=== PATIENT | female | born 1995 | race Caucasian/White ===

== ENCOUNTER 2020-11-16 11:36 | Inpatient (IN) | payer MEDICAID, OTHER ==
--- NOTE | 2020-11-16 11:59 | PCM.LDHP ---
L&D History of Present Illness - General Date of Service: 11/16/20 Admit Problem/Dx: Admission Diagnosis/Problem Admission Diagnosis/Problem Source of Information: Patient History Limitations: Reports: No Limitations - History of Present Illness Introduction:: Leona Moran (Lusy) is a GBS - AB- with RhoGAM at 28 weeks 25 year old female at 37-6 weeks gestation with an ELMER of 12/01/20 by early US and LMP with a history of marijuana use during who was evaluated in clinic for a routine visit and was found to have elevated blood pressure. She denies any contractions, vaginal bleeding, change in discharge or leaking of fluid. She reports good movement. Present Illness Comments:: Leona Moran (Lusy) is a GBS - AB- with RhoGAM at 28 weeks 25 year old female at 37-6 weeks gestation with an ELMER of 12/01/20 by early US and LMP with a history of marijuana use during who was evaluated in clinic for a routine visit and was found to have elevated blood pressure. Patient has received [facility] care with Dr. Murry; has known medicinal marijuana use, approximately 3 times per week during . She received the Tdap vaccine on 09/10/20; flu vaccine 06/25/20 OBGYN History G1: current labs: Blood type: AB- Antibody screen: Negative Rubella status: immune Hepatitis B surface antigen: negative Hepatitis C: unknown RPR: negative HIV: negative Gonorrhea: Negative Chlamydia: negative Anatomy US: 07/30/20 Normal growth, BERHANE, placental position, anatomy. Repeat for more visualization done 09/10/20. One hour glucose tolerance test: 122 on 06/25/21, 116 on 09/10/20 Second trimester hematocrit/hemoglobin: 12.6 Platelets: 259,000 GBS status: negative - Related Data Allergies/Adverse Reactions: Allergies Allergy/AdvReac Type Severity Reaction Status Date / Time No Known Allergies Allergy Verified 11/16/20 12:35 H&P Review of Systems - Review of Systems: Review Of Systems: See Below General: Reports: No Symptoms HEENT: Reports: No Symptoms Pulmonary: Reports: No Symptoms Cardiovascular: Reports: No Symptoms Gastrointestinal: Reports: No Symptoms Genitourinary: Reports: No Symptoms Musculoskeletal: Reports: No Symptoms Skin: Reports: No Symptoms Psychiatric: Reports: No Symptoms Neurological: Reports: No Symptoms L&D Exam - Exam Exam: See Below - OB Specific Movement: Active Heart Tones: Present - Pastor Score Pastor Score Cervix Position: Posterior Pastor Score Effacement: >80% Pastor Score Dilation: 3-4 cm - Exam General: Alert, Oriented Lungs: Clear to Auscultation, Normal Respiratory Effort Cardiovascular: Regular Rate, Regular Rhythm GI/Abdominal Exam: Normal Bowel Sounds, Soft Extremities: Normal Inspection, No Pedal Edema, Normal Capillary Refill Skin: Warm, Dry, Intact Psychiatric: Alert, Normal Affect, Normal Mood - Problem List (1) 37 weeks gestation of SNOMED Code(s): 70312773 ICD Code: Z3A.37 - 37 WEEKS GESTATION OF Status: Acute Current Visit: Yes (2) Marijuana use SNOMED Code(s): 022734863 ICD Code: F12.90 - CANNABIS USE, UNSPECIFIED, UNCOMPLICATED Status: Acute Current Visit: Yes (3) Elevated blood pressure affecting in third trimester, antepartum SNOMED Code(s): 86378620, 21759498, 863755415 ICD Code: O16.3 - UNSPECIFIED MATERNAL HYPERTENSION, THIRD TRIMESTER Status: Acute Current Visit: Yes Problem List Initiated/Reviewed/Updated: Yes Assessment/Plan Comment:: Leona Moran (Lusy) is a GBS - AB- with RhoGAM at 28 weeks 25 year old female at 37-6 weeks gestation with an ELMER of 12/01/20 by early US and LMP with a history of marijuana use during who was evaluated in clinic for a routine visit and was found to have repeated elevated blood pressure. Sent to L&D for induction of labor. 1. Induction of labor for elevated blood pressure with pitocin - Augmentation of labor with AROM as indicated 2. GBS - 3. AB- with negative antibody screen: RhoGAM indicated after delivery 4. Rubella immune 5. Continuous monitoring 6. Activity as tolerated 7. Small amounts of regular diet 8. Pain management as patient desires 9. Plans to breastfeed 10. Anticipate vaginal delivery unless otherwise indicated 11. Elevated blood pressure: CMP and protein/creatinine ratio ordered, continual blood pressure monitoring
[2020-11-16] MEDS ORDERED: Nalbuphine 10 MG/1 ML Vial IVPUSH PRN (12:35)
[2020-11-16] MEDS ORDERED: Sodium Chloride 0.9% 10 ML Syringe FLUSH PRN (12:35)
[2020-11-16] MEDS ORDERED: Oxytocin/Lactated Ringers 10 UNIT/1,000 ML BAG IV SCH ×2 (12:45)
[2020-11-16] MEDS ORDERED: ePHEDrine 50 MG/ML SDV IVPUSH PRN (12:47)
[2020-11-16] MEDS ORDERED: fentaNYL 100 MCG/2 ML SDV EPIDUR PRN (12:47)
[2020-11-16] MEDS ORDERED: Ondansetron 4 MG/2 ML SDV IVPUSH PRN (12:47)
--- NOTE | 2020-11-16 12:50 | PCM.PREANE ---
Preanesthetic Assessment - Procedure Proposed Procedure: Epidural - Anesthesia/Transfusion/Family Hx Anesthesia History: No Prior Anesthesia Family History of Anesthesia Reaction: No Transfusion History: No Prior Transfusion(s) Intubation History: Unknown - Review of Systems General: No Symptoms Pulmonary: No Symptoms Cardiovascular: No Symptoms (PIH), Edema Gastrointestinal: No Symptoms (GERD) Neurological: Headache (migraines) Other: Reports: None, Anxiety - Physical Assessment NPO Status Date: 11/16/20 NPO Status Time: 15:00 Vital Signs: HR:81 Sat:99% Temp:99.6 Resp:20 B/P:156/79 Height: 1.63 m Weight: 128.367 kg ASA Class: 3 Mental Status: Alert & Oriented x3 Airway Class: Mallampati = 3 Dentition: Reports: Normal Dentition, Caries Thyro-Mental Finger Breadths: 3 Mouth Opening Finger Breadths: 3 ROM/Head Extension: Full Lungs: Clear to Auscultation, Normal Respiratory Effort Cardiovascular: Regular Rate, Regular Rhythm, No Murmurs - Lab Values: All labs reviewed and noted and within acceptable ranges to proceed with epidural. - Allergies Allergies/Adverse Reactions: Allergies Allergy/AdvReac Type Severity Reaction Status Date / Time No Known Allergies Allergy Verified 11/16/20 12:35 - Anesthesia Plan Pre-Op Medication Ordered: None - Acknowledgements Anesthesia Type Planned: Epidural Pt an Appropriate Candidate for the Planned Anesthesia: Yes Alternatives and Risks of Anesthesia Discussed w Pt/Guardian: Yes Pt/Guardian Understands and Agrees with Anesthesia Plan: Yes PreAnesthesia Questionnaire - CURRENT (IN HOUSE) MEDS Current Meds: Current Medications Oxytocin/Lactated Ringer's (Pitocin In Lr 10 Units/1,000 Ml) 10 unit in 1,000 mls @ 12 mls/hr IV TITRATE BELLE; Protocol Oxytocin/Lactated Ringer's (Pitocin In Lr 10 Units/1,000 Ml) 10 unit in 1,000 mls @ 500 mls/hr IV .CONTINUOUS BELLE Lactated Ringer's (Ringers, Lactated) 1,000 mls @ 100 mls/hr IV ASDIRECTED BELLE Nalbuphine HCl (Nalbuphine 10 Mg/1 Ml Vial) 10 mg IVPUSH Q2H PRN PRN Reason: Pain Sodium Chloride (Sodium Chloride 0.9% 10 Ml Syringe) 10 ml FLUSH ASDIRECTED PRN PRN Reason: Keep Vein Open
[2020-11-16] MEDS ORDERED: Bupivacaine/fentaNYL/NS 100 ML Bag EPIDUR SCH (13:00)
[2020-11-16] MEDS: Lactated Ringers 1,000 ML IV SCH ×2 (13:07→16:32)
[2020-11-16] MEDS ORDERED: Labetalol 100 MG/20 ML MDV ONE (15:58)
--- NOTE | 2020-11-16 17:18 | PCM.PNLD ---
Labor Progress Note - VS & Meds Vital Signs: Last Vital Signs Temp 36.8 C 11/16/20 12:00 Pulse 87 11/16/20 16:30 Resp 17 11/16/20 12:00 BP 156/89 H 11/16/20 15:31 Pulse Ox 97 11/16/20 16:30 Active Medications: Current Medications Ephedrine Sulfate (Ephedrine 50 Mg/Ml Sdv) 5 mg IVPUSH ASDIRECTED PRN PRN Reason: Hypotension Fentanyl (Fentanyl 100 Mcg/2 Ml Sdv) 100 mcg EPIDUR Q3H PRN PRN Reason: Pain Last Admin: 11/16/20 15:53 Dose: 100 mcg Documented by: Fentanyl/Bupivacaine HCl (Bupivacaine/Fentanyl/Ns 100 Ml Bag) 100 ml EPIDUR ASDIRECTED BELLE Last Admin: 11/16/20 15:53 Dose: 100 ml Documented by: Oxytocin/Lactated Ringer's (Pitocin In Lr 10 Units/1,000 Ml) 10 unit in 1,000 mls @ 12 mls/hr IV TITRATE BELLE; Protocol Last Titration: 11/16/20 16:30 Dose: 8 munits/min, 48 mls/hr Documented by: Oxytocin/Lactated Ringer's (Pitocin In Lr 10 Units/1,000 Ml) 10 unit in 1,000 mls @ 500 mls/hr IV .CONTINUOUS BELLE Lactated Ringer's (Ringers, Lactated) 1,000 mls @ 100 mls/hr IV ASDIRECTED BELLE Last Admin: 11/16/20 16:32 Dose: 100 mls/hr Documented by: Miscellaneous Medication (Phenylephrine Hcl In 0.9% Nacl 1 Mg/10 Ml Syringe) 0.1 mg IVPUSH Q10M PRN PRN Reason: Hypotension Nalbuphine HCl (Nalbuphine 10 Mg/1 Ml Vial) 10 mg IVPUSH Q2H PRN PRN Reason: Pain Ondansetron HCl (Ondansetron 4 Mg/2 Ml Sdv) 4 mg IVPUSH ONETIME PRN PRN Reason: Nausea/Vomiting Sodium Chloride (Sodium Chloride 0.9% 10 Ml Syringe) 10 ml FLUSH ASDIRECTED PRN PRN Reason: Keep Vein Open Discontinued Medications Labetalol HCl (Labetalol 100 Mg/20 Ml Mdv) Confirm Administered Dose 100 mg .ROUTE .STK-MED ONE Stop: 11/16/20 15:59 - Uterine Contractions Contraction Intensity: Moderate - Monitoring Heart Rate (FHR) Variability: Moderate (6-25 bmp) Accelerations: Present, 15x15 Decelerations: None Strip Review: Category I - Vaginal Exam Dilation (cm): 5 Effacement (Percent): 80 Station: -2 Cervical Position: Midposition - Labor Progress (Free Text) Labor Progress: Epidural in place. Progressing well. One severe range blood pressure while sitting for epidural. Improved immediately with epidural.
[2020-11-16] MEDS ORDERED: Bupivacaine 0.25% 10 ML SDV ONE (20:00)
[2020-11-16] MEDS ORDERED: Labetalol 100 MG/20 ML MDV IVPUSH ONE (23:41)
--- NOTE | 2020-11-17 01:07 | PCM.SN.2 ---
- Free Text/Narrative Note: Stage I - Patient presented to clinic with elevated blood pressures. 37 weeks. Sent to labor and delivery for induction of labor. Pitocin initiated. AROM clear fluid. Epidural anesthesia. Progressed to complete with overall reassuring heart tones. Severe range blood pressure x1 at complete. Treated with iv labe tolol x1.. Otherwise mild. Stage II - of viable male, weight 3030g, 8/9 apgars at 0046. Head delivered in controlled manner over intact perineum. Body and shoulders followed atraumatically. To maternal abdomen. Positive cry. Cord clamped and cut at 5 minutes of life after laceration repair. 2nd degree midline laceration repaired with 3-0 vicryl in usual fashion without difficulty. Cord blood collected. Stage III - of intact placenta. 3vc. EBL 200
[2020-11-17] MEDS ORDERED: Benzocaine/Menthol 20%-0.5% Spray 56 GM Canister TOP PRN (01:34)
[2020-11-17] MEDS ORDERED: Witch Hazel Medicated Pads 40/Jar TOP PRN (01:34)
[2020-11-17] MEDS: Ibuprofen 600 MG Tab PO PRN ×2 (03:18→10:38)
--- NOTE | 2020-11-17 07:53 | PCM48HPAN ---
Post Anesthesia Note - EVALUATION WITHIN 48HRS OF ANESTHETIC Vital Signs in Normal Range: Yes Patient Participated in Evaluation: Yes Respiratory Function Stable: Yes Airway Patent: Yes Cardiovascular Function Stable: Yes Hydration Status Stable: Yes Pain Control Satisfactory: Yes Nausea and Vomiting Control Satisfactory: Yes Mental Status Recovered: Yes Vital Signs: Last Vital Signs Temp 36.8 C 11/17/20 06:05 Pulse 85 11/17/20 06:05 Resp 14 11/17/20 06:05 BP 144/90 H 11/17/20 06:05 Pulse Ox 96 11/17/20 06:05
[2020-11-17] MEDS: Acetaminophen 325 MG Tab PO PRN ×2 (15:13→21:28)
[2020-11-18] MEDS: Acetaminophen 325 MG Tab PO PRN (03:23)
[2020-11-18] MEDS: Ibuprofen 600 MG Tab PO PRN (06:41)
--- NOTE | 2020-11-18 09:09 | PCM.DCSUM1 ---
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 Patient is doing well today. She reports that she has been as tolerated. She has been able to ambulate and urinate. Pain and lochia are minimal Brief History: Leona Moran (Lusy) is a GBS - AB- with RhoGAM at 28 weeks G1 now P1001 25 year old female at 37-6 weeks gestation with an ELMER of 12/01/20 by early US and LMP with a history of marijuana use during who was evaluated in clinic for a routine visit and was found to have elevated blood pressure. She was sent to L&D for induction of labor with pitocin and AROM. of a live male weighing 3030 g with APGARs of 8/9 occurred 11/17/20 at 0046. EBL of 200. Mother and baby were stable to recovery. Hospital course has been uneventful Diagnosis: Stroke: No - Discharge Data Discharge Date: 11/18/20 Discharge Disposition: Home, Self-Care 01 Condition: Good - Referral to Home Health Primary Care Physician: PCP None - Discharge Diagnosis/Problem(s) (1) 37 weeks gestation of SNOMED Code(s): 32438986 ICD Code: Z3A.37 - 37 WEEKS GESTATION OF Status: Acute Current Visit: Yes (2) Marijuana use SNOMED Code(s): 622770073 ICD Code: F12.90 - CANNABIS USE, UNSPECIFIED, UNCOMPLICATED Status: Acute Current Visit: Yes (3) Elevated blood pressure affecting in third trimester, antepartum SNOMED Code(s): 19974197, 47261419, 286660926 ICD Code: O16.3 - UNSPECIFIED MATERNAL HYPERTENSION, THIRD TRIMESTER St atus: Acute Current Visit: Yes (4) Spontaneous vaginal delivery SNOMED Code(s): 709508751 ICD Code: O80 - ENCOUNTER FOR FULL-TERM UNCOMPLICATED DELIVERY Status: Acute Current Visit: Yes - Patient Summary/Data Recommended Follow-up Testing/Procedures: Follow with Dr. Murry [facility] Hospital Course: Uneventful - Patient Instructions Diet: Regular Diet as Tolerated Activity: As Tolerated Activity, Other: Pelvic rest Driving: May Drive Today Showering/Bathing: May Shower Notify Provider of: Fever, Increased Pain, Nausea and/or Vomiting - Discharge Plan *PRESCRIPTION DRUG MONITORING PROGRAM REVIEWED*: No *COPY OF PRESCRIPTION DRUG MONITORING REPORT IN PATIENT ADAM: No Home Medications: Home Meds Pnv #30/Iron Carb&Aspg/Fa/Om3 [OB Complete with DHA Softgel] 1 each PO DAILY 11/16/20 [History] Acetaminophen [Tylenol] 650 mg PO Q6H PRN tablet 11/18/20 [Rx] Ibuprofen [Motrin] 600 mg PO Q6H PRN tablet 11/18/20 [Rx] Patient Handouts: Preeclampsia and Eclampsia, Care of a Perineal Tear, Care After Vaginal Delivery Referrals: Sugey Murry MD [Physician] - (Follow-up in 1 week for routine visit with blood pressure check or earlier as needed.) - Discharge Summary/Plan Comment DC Time >30 min.: No - Patient Data Vitals - Most Recent: Last Vital Signs Temp 97.9 F 11/18/20 03:04 Pulse 95 11/18/20 03:04 Resp 16 11/18/20 03:04 BP 137/95 H 11/18/20 03:04 Pulse Ox 98 11/18/20 03:04 Weight - Most Recent: 128.367 kg I&O - Last 24 hours: Intake & Output 11/17/20 11/18/20 11/18/20 22:59 06:59 14:59 Intake Total 320 Balance 320 Lab Results - Last 24 hrs: Laboratory Results - last 24 hr 11/16/20 11/17/20 Range/Units 13:11 05:35 RPR Non-reactive (NONREACTIVE) Blood Type Cancelled Gel Antibody Screen Cancelled Screen Negative RhIG Candidate? Yes Rhogam Indicated Cancelled Med Orders - Current: Current Medications Acetaminophen (Acetaminophen 325 Mg Tab) 650 mg PO Q4H PRN PRN Reason: Pain Last Admin: 11/18/20 03:23 Dose: 650 mg Documented by: Benzocaine/Menthol (Benzocaine/Menthol 20%-0.5% [place] 56 Gm Canister) 0 gm TOP ASDIRECTED PRN PRN Reason: Perineal Comfort Measure Last Admin: 11/17/20 03:18 Dose: 1 container Documented by: Ibuprofen (Ibuprofen 600 Mg Tab) 600 mg PO Q6H PRN PRN Reason: Mild pain or fever Last Admin: 11/18/20 06:41 Dose: 600 mg Documented by: Reji Mchugh (Reji Mchugh Medicated Pads 40/Jar) 1 pad TOP ASDIRECTED PRN PRN Reason: Perineal Comfort Measure Last Admin: 11/17/20 03:17 Dose: 1 tub Documented by: Discontinued Medications Bupivacaine HCl (Bupivacaine 0.25% 10 Ml Sdv) 10 ml .ROUTE .STK-MED ONE Stop: 11/16/20 20:01 Ephedrine Sulfate (Ephedrine 50 Mg/Ml Sdv) 5 mg IVPUSH ASDIRECTED PRN PRN Reason: Hypotension Fentanyl (Fentanyl 100 Mcg/2 Ml Sdv) 100 mcg EPIDUR Q3H PRN PRN Reason: Pain Last Admin: 11/16/20 15:53 Dose: 100 mcg Documented by: Fentanyl/Bupivacaine HCl (Bupivacaine/Fentanyl/Ns 100 Ml Bag) 100 ml EPIDUR ASDIRECTED BELLE Last Admin: 11/16/20 15:53 Dose: 100 ml Documented by: Oxytocin/Lactated Ringer's (Pitocin In Lr 10 Units/1,000 Ml) 10 unit in 1,000 mls @ 12 mls/hr IV TITRATE BELLE; Protocol Last Titration: 11/17/20 00:47 Dose: 166.5 munits/min, 999 mls/hr Documented by: Oxytocin/Lactated Ringer's (Pitocin In Lr 10 Units/1,000 Ml) 10 unit in 1,000 mls @ 500 mls/hr IV .CONTINUOUS BELLE Last Admin: 11/17/20 01:10 Dose: 999 mls/hr Documented by: Lactated Ringer's (Ringers, Lactated) 1,000 mls @ 100 mls/hr IV ASDIRECTED BELLE Last Admin: 11/16/20 16:32 Dose: 100 mls/hr Documented by: Labetalol HCl (Labetalol 100 Mg/20 Ml Mdv) Confirm Administered Dose 100 mg .ROUTE .STK-MED ONE Stop: 11/16/20 15:59 Last Admin: 11/16/20 18:45 Dose: Not Given Documented by: Labetalol HCl (Labetalol 100 Mg/20 Ml Mdv) 10 mg IVPUSH ONETIME ONE; Protocol Stop: 11/16/20 23:42 Last Admin: 11/16/20 23:41 Dose: 10 mg Documented by: Miscellaneous Medication (Phenylephrine Hcl In 0.9% Nacl 1 Mg/10 Ml Syringe) 0.1 mg IVPUSH Q10M PRN PRN Reason: Hypotension Nalbuphine HCl (Nalbuphine 10 Mg/1 Ml Vial) 10 mg IVPUSH Q2H PRN PRN Reason: Pain Ondansetron HCl (Ondansetron 4 Mg/2 Ml Sdv) 4 mg IVPUSH ONETIME PRN PRN Reason: Nausea/Vomiting Sodium Chloride (Sodium Chloride 0.9% 10 Ml Syringe) 10 ml FLUSH ASDIRECTED PRN PRN Reason: Keep Vein Open <Stanislav Gregory - Last Filed: 11/18/20 11:19> Discharge Summary - Hospital Course HPI Initial Comments: I have seen and evaluated the patient with the medical student and agree with her assessment and plan. 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 No signs or symptoms of severe features of preeclampsia. She denies headache, vision changes and epigastric pain. Mild range blood pressures at this time not requiring any medication. Patient with AB- blood type and with B+ blood type. Mother was given RhoGam prior to discharge. Patient will follow up with her regular provider in 1 week for routine visit as well as blood pressure check. Stanislav Gregory MD 11:18 AM 11/18/2020 - Referral to Home Health Primary Care Physician: PCP None - Discharge Diagnosis/Problem(s) (1) 37 weeks gestation of SNOMED Code(s): 48631523 ICD Code: Z3A.37 - 37 WEEKS GESTATION OF Status: Acute Current Visit: Yes (2) Elevated blood pressure affecting in third trimester, antepartum SNOMED Code(s): 45672796, 31153242, 164333260 ICD Code: O16.3 - UNSPECIFIED MATERNAL HYPERTENSION, THIRD TRIMESTER Status: Acute Current Visit: Yes (3) Spontaneous vaginal delivery SNOMED Code(s): 421136801 ICD Code: O80 - ENCOUNTER FOR FULL-TERM UNCOMPLICATED DELIVERY Status: Acute Current Visit: Yes - Discharge Summary/Plan Comment DC Time >30 min.: No - Patient Data Vitals - Most Recent: Last Vital Signs Temp 36.8 C 11/18/20 07:48 Pulse 87 11/18/20 07:48 Resp 16 11/18/20 07:48 BP 137/90 11/18/20 07:48 Pulse Ox 97 11/18/20 07:48 I&O - Last 24 hours: Intake & Output 11/17/20 11/18/20 11/18/20 22:59 06:59 14:59 Intake Total 320 Balance 320 Lab Results - Last 24 hrs: Laboratory Results - last 24 hr 11/16/20 11/17/20 Range/Units 13:11 05:35 RPR Non-reactive (NONREACTIVE) Blood Type Cancelled Gel Antibody Screen Cancelled Screen Negative RhIG Candidate? Yes Rhogam Indicated Cancelled Med Orders - Current: Current Medications Acetaminophen (Acetaminophen 325 Mg Tab) 650 mg PO Q4H PRN PRN Reason: Pain Last Admin: 11/18/20 03:23 Dose: 650 mg Documented by: Benzocaine/Menthol (Benzocaine/Menthol 20%-0.5% [place] 56 Gm Canister) 0 gm TOP ASDIRECTED PRN PRN Reason: Perineal Comfort Measure Last Admin: 11/17/20 03:18 Dose: 1 container Documented by: Ibuprofen (Ibuprofen 600 Mg Tab) 600 mg PO Q6H PRN PRN Reason: Mild pain or fever Last Admin: 11/18/20 06:41 Dose: 600 mg Documented by: Reji Mchugh (Reji Mchugh Medicated Pads 40/Jar) 1 pad TOP ASDIRECTED PRN PRN Reason: Perineal Comfort Measure Last Admin: 11/17/20 03:17 Dose: 1 tub Documented by: Discontinued Medications Bupivacaine HCl (Bupivacaine 0.25% 10 Ml Sdv) 10 ml .ROUTE .STK-MED ONE Stop: 11/16/20 20:01 Ephedrine Sulfate (Ephedrine 50 Mg/Ml Sdv) 5 mg IVPUSH ASDIRECTED PRN PRN Reason: Hypotension Fentanyl (Fentanyl 100 Mcg/2 Ml Sdv) 100 mcg EPIDUR Q3H PRN PRN Reason: Pain Last Admin: 11/16/20 15:53 Dose: 100 mcg Documented by: Fentanyl/Bupivacaine HCl (Bupivacaine/Fentanyl/Ns 100 Ml Bag) 100 ml EPIDUR ASDIRECTED BELLE Last Admin: 11/16/20 15:53 Dose: 100 ml Documented by: Oxytocin/Lactated Ringer's (Pitocin In Lr 10 Units/1,000 Ml) 10 unit in 1,000 mls @ 12 mls/hr IV TITRATE BELLE; Protocol Last Titration: 11/17/20 00:47 Dose: 166.5 munits/min, 999 mls/hr Documented by: Oxytocin/Lactated Ringer's (Pitocin In Lr 10 Units/1,000 Ml) 10 unit in 1,000 mls @ 500 mls/hr IV .CONTINUOUS BELLE Last Admin: 11/17/20 01:10 Dose: 999 mls/hr Documented by: Lactated Ringer's (Ringers, Lactated) 1,000 mls @ 100 mls/hr IV ASDIRECTED BELLE Last Admin: 11/16/20 16:32 Dose: 100 mls/hr Documented by: Labetalol HCl (Labetalol 100 Mg/20 Ml Mdv) Confirm Administered Dose 100 mg .ROUTE .STK-MED ONE Stop: 11/16/20 15:59 Last Admin: 11/16/20 18:45 Dose: Not Given Documented by: Labetalol HCl (Labetalol 100 Mg/20 Ml Mdv) 10 mg IVPUSH ONETIME ONE; Protocol Stop: 11/16/20 23:42 Last Admin: 11/16/20 23:41 Dose: 10 mg Documented by: Miscellaneous Medication (Phenylephrine Hcl In 0.9% Nacl 1 Mg/10 Ml Syringe) 0.1 mg IVPUSH Q10M PRN PRN Reason: Hypotension Nalbuphine HCl (Nalbuphine 10 Mg/1 Ml Vial) 10 mg IVPUSH Q2H PRN PRN Reason: Pain Ondansetron HCl (Ondansetron 4 Mg/2 Ml Sdv) 4 mg IVPUSH ONETIME PRN PRN Reason: Nausea/Vomiting Sodium Chloride (Sodium Chloride 0.9% 10 Ml Syringe) 10 ml FLUSH ASDIRECTED PRN PRN Reason: Keep Vein Open
== END 2020-11-18 13:15 | disposition home or self-care (01) | DRG 806 ==
LOC: JD.OB 11:36 → UNDOADMIN 11:36 → JD.OB 15:07 → UNDODISIN 11-18 13:15
PROVIDERS: ADMIT Obstetrics & Gynecology; ATTEND Obstetrics & Gynecology
PROC: 10E0XZZ Delivery of Products of Conception, External Approach (ICD-10-PCS; principal; 2020-11-16)
PROC: 0KQM0ZZ Repair Perineum Muscle, Open Approach (ICD-10-PCS; 2020-11-16)
PROC: 10907ZC Drainage of Amniotic Fluid, Therapeutic from Products of Conception, Via Natural or Artificial Opening (ICD-10-PCS; 2020-11-16)
PROC: 3E033VJ Introduction of Other Hormone into Peripheral Vein, Percutaneous Approach (ICD-10-PCS; 2020-11-16)
PROC: 3E0R3BZ Introduction of Anesthetic Agent into Spinal Canal, Percutaneous Approach (ICD-10-PCS; 2020-11-16)
PROC: 00HU33Z Insertion of Infusion Device into Spinal Canal, Percutaneous Approach (ICD-10-PCS; 2020-11-16)
PROC: 3E0334Z Introduction of Serum, Toxoid and Vaccine into Peripheral Vein, Percutaneous Approach (ICD-10-PCS; 2020-11-17)
DX: O16.3 Unspecified maternal hypertension, third trimester (principal); O99.324 Drug use complicating childbirth; Z37.0 Single live birth; O70.1 Second degree perineal laceration during delivery; O26.893 Other specified pregnancy related conditions, third trimester; Z67.31 Type AB blood, Rh negative; Z3A.37 37 weeks gestation of pregnancy; F12.90 Cannabis use, unspecified, uncomplicated
CPT/HCPCS: 01967; 36415; 51702; 59025; 59409; 80306; 82565; 82570; 83615; 84156; 84450; 84460; 84520; 84550; 85025; 85461; 86592; 86803; 86850; 86900; 86901; A9270-GY; J2590; J2790; J3010; J3490; J7120; U0002